=== PATIENT | female | born 2000 | race Two or more races ===

== ENCOUNTER 2023-12-27 15:48 | Outpatient (CLI) | payer OTHER ==
[~2023-12-27 15:48] MED LIST: PRENATAL + DHA1 EAC1
== END 2023-12-27 15:51 | disposition home or self-care (01) ==
LOC: PRENATAL 15:48
PROVIDERS: ATTEND Obstetrics & Gynecology Maternal & Fetal Medicine
DX: O35.9XX0 Maternal care for (suspected) fetal abnormality and damage, unspecified, not applicable or unspecified (principal); O35.3XX0 Maternal care for (suspected) damage to fetus from viral disease in mother, not applicable or unspecified; O44.00 Complete placenta previa NOS or without hemorrhage, unspecified trimester; Z3A.20 20 weeks gestation of pregnancy

== ENCOUNTER → 2024-03-20 10:25 | Outpatient (CLI) | payer OTHER | END | disposition home or self-care (01) | LOC: PRENATAL 10:25 | PROVIDERS: ATTEND Obstetrics & Gynecology Maternal & Fetal Medicine | DX: O26.849 Uterine size-date discrepancy, unspecified trimester (principal); O36.8199 Decreased fetal movements, unspecified trimester, other fetus; O99.019 Anemia complicating pregnancy, unspecified trimester; Z3A.32 32 weeks gestation of pregnancy ==

== ENCOUNTER 2024-05-06 12:05 | Inpatient (IN) | payer OTHER ==
[~2024-05-06] VITALS: Ht 152.4 cm; Wt 59.9 kg
[2024-05-06 11:44] VITALS: BP 122/76
[2024-05-06] MEDS ORDERED: IRON325 MG PO (12:40)
[2024-05-06 13:45] LABS: HEMOGLOBIN 12.8 g/dL (12.0-15.00); MEAN CELL VOLUME 97.9 fL (80.00-100.00); MEAN CORPUSCULAR HEMOGLOBIN 33.9 pg (27.00-32.0); MEAN CORPUSCULAR HGB CONC 34.6 g/dl (32.0-36.0); PLATELET COUNT 173 K/uL (150-450); RED BLOOD COUNT 3.78 M/uL (4.00-6.00); RED CELL DISTRIBUTION WIDTH 13.7 % (11.5-14.5)
[2024-05-06 14:25] LABS: PH,URINE 6.5 (5.0-8.0); URINE APPEARANCE Clear; URINE BILIRRUBIN Negative (NEGATIVE); URINE BLOOD Negative; URINE COLOR Dark Yellow; URINE GLUCOSE Negative (NEGATIVE); URINE KETONE Trace (NEGATIVE); URINE LEUKOCYTE Small; URINE NITRATE Negative; URINE PROTEIN Trace (NEGATIVE)
[2024-05-06 14:27] LABS: URINE BACTERIA 112.1 uL (0.0-1933); URINE EPITHELIAL CELLS 14.8 uL (0.0-38.8); URINE WBC 7.1 uL (0.0-23.2)
[2024-05-06 14:42] LABS: URINE RBC 1.3 uL (0.0-20.8)
[2024-05-06] MEDS ORDERED: RINGERS SOLUTION,LACTATED 1,000 ML IV SCH (15:15)
[2024-05-06 15:26] VITALS: BP 110/68
[2024-05-06] MEDS ORDERED: MORPHINE SULFATE 4 MG/ML VIAL IV ONE (17:45)
[2024-05-06 19:13] VITALS: BP 120/65
[2024-05-06 21:00] VITALS: BP 122/76
[2024-05-06] MEDS ORDERED: AMPICILLIN SODIUM 2,000 MG VIAL IV ONE (21:00)
[2024-05-06 23:32] VITALS: BP 122/70
[2024-05-07] VITALS (9 sets, daily range): BP systolic 101–126; BP diastolic 57–73
[2024-05-07] MEDS ORDERED: AMPICILLIN SODIUM 1,000 MG VIAL IV SCH (01:00)
[2024-05-07] MEDS ORDERED: LIDOCAINE HCL 1% 10ML VIAL PERCUT ONE (02:20)
[2024-05-07] MEDS ORDERED: ERYTHROMYCIN BASE OPHT 1GM EACH TUBE OP ONE (02:25)
[2024-05-07] MEDS ORDERED: IBUprofen 400 MG TABLET PO PRN (02:45)
[2024-05-07] MEDS ORDERED: OXYTOCIN 1,000 ML IV SCH (03:00)
[2024-05-07] MEDS ORDERED: CHLORHEXIDINE GLUCONATE 120 ML BOTTLE TOP SCH (03:00)
[2024-05-07] MEDS ORDERED: OXYTOCIN 10 UNITS/ML VIAL IM STA (03:00)
[2024-05-07 08:01] LABS: HEMATOCRIT 34.5 % (36.0-45.00); HEMOGLOBIN 11.7 g/dL (12.0-15.00); MEAN CELL VOLUME 97.2 fL (80.00-100.00); MEAN CORPUSCULAR HEMOGLOBIN 33.1 pg (27.00-32.0); PLATELET COUNT 178 K/uL (150-450); RED BLOOD COUNT 3.55 M/uL (4.00-6.00); RED CELL DISTRIBUTION WIDTH 13.6 % (11.5-14.5)
[2024-05-08 07:36] VITALS: BP 107/62
[2024-05-08 13:14] VITALS: BP 98/65
[2024-05-08 16:55] VITALS: BP 107/69
[2024-05-09 01:15] VITALS: BP 93/59
[2024-05-09 08:06] VITALS: BP 100/66
== END 2024-05-09 11:55 | disposition home or self-care (01) | DRG 807 ==
LOC: OBS/DEL 12:05 → OB/GYN 20:54 → LDR 20:54 → OBS/DEL 20:54 → OB/GYN 05-07 03:05
PROVIDERS: ADMIT Obstetrics & Gynecology; ATTEND Obstetrics & Gynecology
PROC: 4A1HXCZ Monitoring of Products of Conception, Cardiac Rate, External Approach (ICD-10-PCS; 2024-05-06)
PROC: BY4FZZZ Ultrasonography of Third Trimester, Single Fetus (ICD-10-PCS; 2024-05-06)
PROC: 10E0XZZ Delivery of Products of Conception, External Approach (ICD-10-PCS; principal; 2024-05-07)
PROC: 0KQM0ZZ Repair Perineum Muscle, Open Approach (ICD-10-PCS; 2024-05-07)
DX: O70.1 Second degree perineal laceration during delivery (principal); Z37.0 Single live birth; O69.89X0 Labor and delivery complicated by other cord complications, not applicable or unspecified; O77.0 Labor and delivery complicated by meconium in amniotic fluid; Z3A.38 38 weeks gestation of pregnancy; Z20.822 Contact with and (suspected) exposure to COVID-19